=== PATIENT | female | born 1985 | race African-American/Black ===

== ENCOUNTER → 2021-06-18 | Outpatient (CLI) | payer OTHER ==
--- NOTE | 2021-06-19 08:51 | KCIC ---
US PELVIS W/TV History: Reason: ROUTINE, VAGINAL DISCHARGE, OVULATION BLEEDING / Spl. Instructions: / History: Comparison: None Technique: Grayscale and color Doppler imaging of the pelvis was performed using transabdominal and t ransvaginal technique. Findings: The uterus measures 8.9 x 4.3 x 3.8 cm. Uterus has an unremarkable appearance. Nabothian cysts noted . The endometrial stripe measures 8 mm. Right ovary measures 3.3 x 2.0 x 2.6 cm. Left ovary measures 3.3 x 2.9 x 2.4 cm. Septated left ovarian follicle measures 2.4 x 1.8 x 2.0 cm. Normal Doppler flow to the ovaries. No adnexal masses are seen. IMPRESSION: 1. Septated left ovarian follicle. Electronically signed by: Yves Israel DO (06/19/2021 8:49 AM) [id number]
== END ==
LOC: KCIC US 15:02
PROVIDERS: ATTEND Obstetrics & Gynecology
DX: Z01.419 Encounter for gynecological examination (general) (routine) without abnormal findings (principal); N92.3 Ovulation bleeding; N83.02 Follicular cyst of left ovary; N88.8 Other specified noninflammatory disorders of cervix uteri
CPT/HCPCS: 76830; 76856

== ENCOUNTER → 2021-07-22 | Outpatient (CLI) | payer OTHER ==
[~2021-07-22] MED LIST: OXYC1TAB15 PO
--- NOTE | 2021-07-22 16:17 | KCIC ---
EXAM: Pelvic sonogram. HISTORY: Vaginal discharge. Left ovarian cyst. TECHNIQUE: Transabdominal and transvaginal sonographic imaging of the pelvis was performed. COMPARISON: 06/18/2021. FINDINGS: The uterus measures 7.9 x 5.1 x 3.7 cm. The uterus is retroverted. The endometrial stripe m easures 8.2 mm in thickness. The ovaries are normal in size and demonstrate normal blood flow. There are small bilateral ovarian follicles. There is a 2.5 x 2.3 x 1.8 cm left ovarian cyst with internal daughter cyst and thin septation. There are nabothian cysts within the cervix. There is no pelvic andrea e fluid. IMPRESSION: 1. 2.5 cm complicated left ovarian cyst containing a daughter cyst and thin internal septation. The i nternal septation appears decreased compared to the prior exam. The cyst is not significantly changed in size. 2. Small nabothian cysts within the cervix. Electronically signed by: Lisa Campbell MD (07/22/2021 4:15 PM) [id number]
== END ==
LOC: KCIC US 15:34
PROVIDERS: ATTEND Obstetrics & Gynecology
DX: N83.202 Unspecified ovarian cyst, left side (principal); N85.4 Malposition of uterus; N76.0 Acute vaginitis
CPT/HCPCS: 76830; 76856

== ENCOUNTER → 2021-08-11 | Outpatient (CLI) | payer OTHER | LOC: LAB 11:04 | PROVIDERS: ATTEND Obstetrics & Gynecology | DX: Z01.812 Encounter for preprocedural laboratory examination (principal); N83.292 Other ovarian cyst, left side; Z20.822 Contact with and (suspected) exposure to COVID-19 | CPT/HCPCS: U0003; U0005 ==

== ENCOUNTER 2021-08-13 11:35 | Day surgery (SDC) | payer OTHER ==
[~2021-08-13] VITALS: Ht 165.1 cm; Wt 96.4 kg
[~2021-08-13 11:35] MED LIST changes: +HYDROmorphone 2 MG/ML VIAL IVP PRN; +IV RINGERS,LACTATED 1000ML 1,000 ML IV SCH; -OXYC1TAB15 PO; +PROCHLORPERAZINE 10 MG/2 ML VIAL. IVP PRN; +ceFAZolin SODIUM IV Push 1 GM VIAL. IVP PRN; +fentaNYL PF VIAL 100 MCG/2 ML VIAL IVP PRN
[2021-08-13 12:01] VITALS: BP 138/92
[2021-08-13] MEDS ORDERED: PROPOFOL 50 ML IV ONE (13:37)
[2021-08-13] MEDS ORDERED: ROCURONIUM 50 MG/5 ML VIAL. ONE (13:56)
[2021-08-13] MEDS ORDERED: LIDOCAINE 2% PF 5 ML VIAL. ONE (13:56)
[2021-08-13] MEDS ORDERED: MIDAZOLAM HCL/PF 2 MG/2 ML VIAL. ONE (13:56)
[2021-08-13] MEDS ORDERED: fentaNYL PF VIAL 100 MCG/2 ML VIAL ONE (13:56)
[2021-08-13] MEDS ORDERED: BUPIVACAINE-EPI 0.5% 30 ML VIAL KIT. ONE (14:21)
[2021-08-13] MEDS ORDERED: SURGICEL HEMOSTAT 4X8 EACH. ONE (14:21)
[2021-08-13] MEDS ORDERED: DEXAMETHASONE SOD PHOS 4 MG/ML VIAL ONE (14:48)
[2021-08-13] MEDS ORDERED: ONDANSETRON PF 4 MG/2 ML VIAL. ONE (14:48)
[2021-08-13] MEDS ORDERED: KETOROLAC 30 MG/ML VIAL. ONE (14:49)
--- NOTE | 2021-08-13 15:31 | PDOC4 ---
BRIEF OPERATIVE NOTE Date: Aug 13, 2021 Pre-Op Diagnosis SHAISTA Cyst Post-Op Diagnosis Same Procedure Performed [facility] SHAISTA Cystectomy Surgeon Dr. Magallon Anesthesia Type: General Blood Loss 5 ml Specimens Obtained SHAISTA cyst wall Findings SHAISTA cyst 5 cm size Complications none Operative Note see dictation TIAN MAGALLON Jr, MD Aug 13, 2021 15:31
[2021-08-13] MEDS ORDERED: OXYC1TAB15 PO (15:32)
--- NOTE | 2021-08-13 15:34 | DISCH ---
DISCHARGE INSTRUCTIONS Condition on Discharge Condition on Discharge: Stable Activity After Discharge Activity Instructions for Disc: Activity as tolerated Lifting Instructions after Dis: No heavy lifting Driving Instructions after Dis: Do not drive today Diet after Discharge Diet after Discharge: Regular Contacting the DRUvaldo after DC Call your doctor for: Concerns you may have Follow-Up Follow up with: Dr. Magallon in 2 weeks TIAN MAGALLON Jr, MD Aug 13, 2021 15:33
[2021-08-13] MEDS ORDERED: MORPHINE SULFATE 2 MG/ML INJ. ONE (15:43)
[2021-08-13] MEDS ORDERED: oxyCODONE/APAP 5/325 1 TAB TABLET PO ONE (15:45)
[2021-08-13] MEDS: MORPHINE SULFATE 2 MG/ML INJ. IVP PRN ×2 (15:53→16:10)
[2021-08-13 16:30] VITALS: BP 162/63
--- NOTE | 2021-08-13 19:26 | OP ---
DATE OF SURGERY: 08/13/2021 PREOPERATIVE DIAGNOSIS: Left ovarian cyst. POSTOPERATIVE DIAGNOSIS: Left ovarian cyst. PROCEDURE: Laparoscopic left ovarian cystectomy. SURGEON: Rafael Magallon MD ANESTHESIA: GETA. ESTIMATED BLOOD LOSS: 5 mL. COMPLICATIONS: None. FINDINGS: Left ovarian cyst 5 cm size. SUMMARY: A 35-year-old female with pelvic pain and left ovarian cyst of 6 cm size by pelvic sonogram. The patient was counseled on the risks, benefits and expectations of laparoscopic left ovarian cystectomy and voiced clear understanding to proceed. DESCRIPTION OF PROCEDURE: The patient was taken to surgery suite and placed in dorsal lithotomy position. She was prepped with Betadine solution and draped in a sterile fashion. Abdominal prep was with ChloraPrep. Astor speculum was placed vaginally. Anterior lip of the cervix grasped with single tooth tenaculum. Uterine acorn manipulator was then placed. The bivalve speculum was removed and attention was now placed on the abdomen. Small transverse skin incision was made just below the umbilicus with a scalpel. The Veress needle was placed through the infraumbilical incision site. The abdomen was allowed to insufflate up to 1-1/2 liters CO2 gas. A 5 mm trocar was placed. Scope was positioned. Uterus appeared normal size. Fallopian tubes appeared normal bilaterally. Right ovary appeared normal. Left ovary demonstrated a 5 cm size simple cyst where 2 additional incisions in the left lower quadrant, 5 mm trocar and an 8 mm trocar was placed. With aid of Jah graspers, the left ovary was grasped and entered with the EndoShears with cautery. The cyst was then aspirated with suction irrigation. The cyst wall was excised with the EndoShears. Cautery fulguration was performed on the remaining of the ovarian cyst wall and was hemostatic. Suction irrigation was utilized to verify good hemostasis. A small amount of normal saline was left in posterior cul-de-sac. The ports were then removed under direct visualization. The abdomen was allowed to deflate as much as possible along with mechanical manipulation. Three skin incisions were reapproximated using 4-0 Vicryl suture in subcuticular manner. 0.25% Marcaine with epinephrine injected at each incision site. Uterine acorn manipulator and single tooth tenaculum were removed. The patient tolerated the procedure well and was taken to recovery room in stable condition. Sponge and needle count correct x 3. DYAN/BOBBY/KYRA DR: DYAN/rex TID: [id number]
--- NOTE | 2021-08-19 15:09 | PATHOLOGY ---
[facility] Accession Number: [id number] . 01 Material submitted: . ovary - LEFT OVARIAN CYST WALL. Modifiers: left, wall . 01 Clinical history: . LEFT OVARIAN CYST OP4S WITH LT OV. CYTECTOMY . 02 Diagnosis: Ovary, "left ovarian cyst wall", excision: - Corpus luteal cyst wall. - Negative for malignancy. (MLK:teresa; 08/19/2021) MBR 08/19/2021 1221 Local . 02 Electronically signed: . Hilary Aguilera MD, Pathologist NPI- [id number] . 01 Gross description: . The specimen is received in formalin, labeled "Willa Gera, left ovarian cyst wall". Received is a segment of pale mcdonald tissue measuring 2.4 x 1.5 x 0.5 cm in greatest dimensions. Sectioning reveals several corpora lutea ranging in size from 0.4-0.5 cm. The specimen is serially sectioned and entirely submitted in cassettes A1 and A2. (CAA; 08/17/2021) QA/QA 08/17/2021 1235 Local . 02 Pathologist provided ICD-10: N83.12 . 02 CPT . 942971 Specimen Comment: A courtesy copy of this report has been sent to [phone] Specimen Comment: Report sent to Performed at: [address] [facility] [address], [place] [id number] MD Otf Bentley MD Phone: [phone] Performed at: 02 [facility] [address] [place], [place] [id number] MD Francisco De Luna MD Phone: [phone]
== END 2021-08-13 17:25 | disposition home or self-care (01) ==
LOC: SURG 11:35
PROVIDERS: ATTEND Obstetrics & Gynecology
DX: N83.292 Other ovarian cyst, left side (principal); Z98.890 Other specified postprocedural states
CPT/HCPCS: 58662; 81025; A4930; J0690; J1100; J1885; J2250; J2270; J2405; J2704; J3010